=== PATIENT | female | born 1985 | race African-American/Black ===

== ENCOUNTER 2017-06-03 22:29 | Emergency (ER) | payer SELFPAY ==
[~2017-06-03] VITALS: Ht 154.9 cm; Wt 49.0 kg
[2017-06-04] MEDS ORDERED: LIDOCAINE HCL 1% 20ML VIAL (Pyxis) INJ INFIL ONE (04:00)
[2017-06-04 05:33] VITALS: BP 119/76
== END 2017-06-04 05:35 | disposition home or self-care (01) ==
LOC: ER 06-04 04:02
DX: N76.4 Abscess of vulva (principal); R03.0 Elevated blood-pressure reading, without diagnosis of hypertension; F17.210 Nicotine dependence, cigarettes, uncomplicated; F12.90 Cannabis use, unspecified, uncomplicated
CPT/HCPCS: 56405; 81025; 99284; J3490; J7030; X7700; Z7610

== ENCOUNTER 2018-02-06 00:40 | Emergency (ER) | payer SELFPAY ==
[~2018-02-06] VITALS: Ht 154.9 cm; Wt 56.0 kg
[2018-02-06] MEDS ORDERED: BACITRACIN ZINC OINT UDPKT TOP ONE (06:00)
[2018-02-06] MEDS ORDERED: LIDOCAINE HCL 1% 20ML VIAL (Pyxis) INJ MC ONE (06:00)
[2018-02-06 06:30] VITALS: BP 102/64
== END 2018-02-06 07:28 | disposition home or self-care (01) ==
LOC: ER 00:40
DX: L02.31 Cutaneous abscess of buttock (principal); F17.200 Nicotine dependence, unspecified, uncomplicated; F12.10 Cannabis abuse, uncomplicated
CPT/HCPCS: 81025; 99283; J3490